=== PATIENT | male | born 1980 | race Caucasian/White ===

== ENCOUNTER 2021-06-20 12:31 | Outpatient (REF) | payer BC, SELFPAY ==
[2021-06-20 15:15] LABS: Calculated LDL 187 mg/dL (<100); Cholesterol 289 mg/dL (<200); HDL Cholesterol 42 mg/dL (40-60); TSH (W/Ref FT4) 0.85 uIU/mL (0.36-3.74); Triglyceride 304 mg/dL (<150)
[2021-06-20 17:33] LABS: COMMENT (LAB VIEW ONLY) 25.07 mg/dL; Microalb ug/mg Crea 13.6 ug/mg Cr
== END 2021-06-20 12:32 | disposition home or self-care (01) ==
LOC: NCHCN 12:31
PROVIDERS: Visit Provider Nurse Practitioner Family
DX: E11.9 Type 2 diabetes mellitus without complications (principal); Z00.00 Encounter for general adult medical examination without abnormal findings
CPT/HCPCS: 80061; 82043; 82570; 84443

== ENCOUNTER 2022-10-17 11:05 | Outpatient (REF) | payer BC, SELFPAY ==
[2022-10-18 11:58] LABS: COMMENT (LAB VIEW ONLY) 162.63 mg/dL; Microalb ug/mg Crea 3.7 ug/mg Cr
[2022-10-18 12:00] LABS: ALT 40 U/L (16-63); AST 15 U/L (15-37); Albumin 4.2 g/dL (3.4-5.0); Alkaline Phosphatase 91 U/L (46-116); BUN 18 mg/dL (7-18); Bilirubin, Total 0.6 mg/dL (0.2-1.0); CREATININE 1.2 mg/dL (0.70-1.30); Calculated LDL 57 mg/dL (<100); Chloride 100 mmol/L (98-107); Cholesterol 151 mg/dL (<200); Glucose 319 mg/dL (74-106); HDL Cholesterol 53 mg/dL (40-60); Potassium 4.1 mmol/L (3.5-5.1); Sodium 135 mmol/L (136-145); Total Protein 6.7 g/dL (6.4-8.2); Triglyceride 208 mg/dL (<150)
[2022-10-18 12:18] LABS: Calcium 8.6 mg/dL (8.5-10.1)
[2022-10-18 13:26] LABS: Hemoglobin A1C 8.4 % (<5.7)
== END 2022-10-17 11:06 | disposition home or self-care (01) ==
LOC: NCHCN 11:05
PROVIDERS: Visit Provider Nurse Practitioner Family
DX: E11.9 Type 2 diabetes mellitus without complications (principal); E78.5 Hyperlipidemia, unspecified
CPT/HCPCS: 80053; 80061; 82043; 82570; 83036

== ENCOUNTER 2023-07-31 08:56 | Outpatient (REF) | payer BC, SELFPAY ==
[2023-07-31 16:00] LABS: Anion Gap 11.7 mmol/L (3-11); BUN 35 mg/dL (7-18); CO2 25.3 mmol/L (21.0-32.0); CREATININE 1.1 mg/dL (0.70-1.30); Calcium 9.7 mg/dL (8.5-10.1); Chloride 100 mmol/L (98-107); Estimated GFR 86.49 (mL/min/1.73m2); Glucose 153 mg/dL (74-106); Potassium 4.9 mmol/L (3.5-5.1); Sodium 137 mmol/L (136-145)
[2023-07-31 16:23] LABS: Bilirubin Negative (Negative); Blood Negative (Negative); Clarity Clear (Clear); Glucose 500 mg/dL (Negative); Ketones 80 mg/dL (Negative); Leukocyte Esterase Negative (Negative); Nitrite Negative (Negative); Urobilinogen 0.2 mg/dL (Up to 0.2); pH 5.5 (5-8)
== END 2023-07-31 08:57 | disposition home or self-care (01) ==
LOC: NCHCN 08:56
PROVIDERS: PCP Physician Assistant; Visit Provider Physician Assistant
DX: E11.65 Type 2 diabetes mellitus with hyperglycemia (principal)
CPT/HCPCS: 80048; 81003